=== PATIENT | male | born 1990 | race African-American/Black ===

== ENCOUNTER 2017-11-06 22:16 | Emergency (ER) | payer SELFPAY ==
[2017-11-07] MEDS ORDERED: IBUPROFEN 600 MG TABLET PO ONE (01:22)
[2017-11-07] MEDS ORDERED: ACETAMINOPHEN 325 MG TABLET PO ONE (01:22)
[2017-11-07] MEDS ORDERED: SULFAMETHOXAZOLE/TRIMETHOPRIM 800-160 MG TABLET PO ONE (01:22)
--- NOTE | 2017-11-07 01:30 | ER Document Report ---
ED General - General Chief Complaint: Abscess Stated Complaint: PAIN IN LEFT BUTTOCKS Time Seen by Provider: 11/07/17 00:28 Notes: Patient is a 27-year-old male here for perirectal abscess who presents with 3 days of progressive worsening pain to the left inner buttock. He describes as severe, constant, stabbing pain. It is worsened by sitting on the area. He has not tried any to improve the pain. He states this feels similar to how his prior perirectal abscess started so he came to the emergency department before a got worse. He notes that he has not been able to feel an appreciable area of swelling or induration only an area of pain. He denies any associated fever or constitutional symptoms. He has not seen his primary doctor regarding today's concerns. He denies any other additional complaints or concerns. TRAVEL OUTSIDE OF THE [place] IN LAST 30 DAYS: Yes - Related Data Allergies/Adverse Reactions: Penicillins Allergy (Verified 05/03/15 20:13) Past Medical History - General Information source: Patient - Social History Smoking Status: Never Smoker Frequency of alcohol use: None Drug Abuse: None Lives with: Spouse/Significant other Family History: Reviewed & Not Pertinent - Immunizations Immunizations up to date: Yes Hx Diphtheria, Pertussis, Tetanus Vaccination: Yes Review of Systems - Review of Systems Notes: Constitutional: Negative for fever. HENT: Negative for sore throat. Eyes: Negative for visual changes. Cardiovascular: Negative for chest pain. Respiratory: Negative for shortness of breath. Gastrointestinal: Negative for abdominal pain, vomiting or diarrhea. Genitourinary: Negative for dysuria. Musculoskeletal: Negative for back pain. Skin: Positive for pain to the left buttock Neurological: Negative for headaches, weakness or numbness. 10 point ROS negative except as marked above and in HPI. Physical Exam - Vital signs Vitals: Temp Pulse Resp BP Pulse Ox 98.5 F 94 16 132/83 H 98 11/06/17 22:27 11/06/17 22:27 11/06/17 22:27 11/06/17 22:27 11/06/17 22:27 Interpretation: Normal Notes: PHYSICAL EXAMINATION: GENERAL: Well-appearing, well-nourished and in no acute distress. HEAD: Atraumatic, normocephalic. EYES: Pupils equal round and reactive to light, extraocular movements intact, sclera anicteric, conjunctiva are normal. ENT: nares patent, oropharynx clear without exudates. Moist mucous membranes. NECK: Normal range of motion, supple without lymphadenopathy LUNGS: Breath sounds clear to auscultation bilaterally and equal. No wheezes rales or rhonchi. HEART: Regular rate and rhythm without murmurs Rectal: No swelling or area of tenderness on rectal examination ABDOMEN: Soft, nontender, normoactive bowel sounds. No guarding, no rebound. No masses appreciated. EXTREMITIES: Normal range of motion, no pitting or edema. No cyanosis. NEUROLOGICAL: No focal neurological deficits. Moves all extremities spontaneously and on command. PSYCH: Normal mood, normal affect. SKIN: Warm, no appreciable area of swelling, erythema or induration to the left buttock Course - Re-evaluation Re-evalutation: 11/07/17 01:31 Patient presents with 2 days of pain to the left proximal inner buttock although has no area of localized swelling or fluctuance. No area of erythema. The area of pain seems to be quite localized to one specific region but again I am unable to palpate any appreciable swelling or fluctuance to suggest an abscess at this time. A bedside ultrasound was used to evaluate further and again there is no apparent fluid collection to the area. At this point, I do not believe there is a formed abscess, likely phlegmon or initial stages of an abscess development. Therefore no incision and drainage has been performed. Patient has been started on trimethoprim sulfamethoxazole 2 tabs twice daily and has been instructed to follow-up in the surgery clinic on Thursday for reassessment or return to emergency department immediately should he begin to have more swelling or pain to the area that would suggest a developing abscess. A rectal examination likewise did not demonstrate any evidence of a rectal abscess. At this time will discharge with return precautions and follow-up recommendations. Verbal discharge instructions given a the bedside and opportunity for questions given. Medication warnings reviewed. Patient is in agreement with this plan and has verbalized understanding of return precautions and the need for primary care follow-up in the next 24-72 hours. - Vital Signs Vital signs: Temp Pulse Resp BP Pulse Ox 98.1 F 78 18 128/68 H 98 11/07/17 02:20 11/07/17 02:20 11/07/17 02:20 11/07/17 02:20 11/07/17 02:20 Discharge - Discharge Clinical Impression: Left buttock pain, Phlegmon Condition: Good Disposition: HOME, SELF-CARE Additional Instructions: We are currently unable to identify a fluid pocket although based on your prior history I am very worried that she may end up developing an abscess on this area. Unfortunately tonight by exam and ultrasound we cannot locate any fluid pocket, likely because the area has not yet fully developed. Please take the antibiotics that have been prescribed as directed. Apply warm compresses to the area for 20 minutes every 2-3 hours. Continue take For your pain: Take ibuprofen 600 mg and acetaminophen 1000 mg every 6 hours together as needed for pain. Return if your having worsening pain, spreading redness from the area, if you notice an area of fluctuance (swelling) or you have any other symptoms that are worrisome to you. Prescriptions: Sulfamethoxazole/Trimethoprim [Bactrim Ds Tablet] 2 tab PO BID #28 tablet Referrals: CHARLENE MCLEAN MD [ACTIVE STAFF] - Follow up in 3-5 days
[2017-11-07 02:48] VITALS: BP 128/68
== END 2017-11-07 02:20 | disposition home or self-care (01) ==
LOC: ER 22:16
DX: L02.31 Cutaneous abscess of buttock (principal); R52 Pain, unspecified
CPT/HCPCS: 99282

== ENCOUNTER 2017-11-11 00:12 | Inpatient (IN) | payer SELFPAY ==
--- NOTE | 2017-11-11 00:58 | ER Document Report ---
ED Skin Rash/Insect Bite/Abscs - General Chief Complaint: Abscess Stated Complaint: ABSCESS Time Seen by Provider: 11/11/17 00:26 Mode of Arrival: Ambulatory Information source: Patient TRAVEL OUTSIDE OF THE [place] IN LAST 30 DAYS: No - HPI Patient complains to provider of: Tender/swollen area Notes: Patient is here with complaints of left-sided rectal pain. The patient was seen here 4 days ago for left-sided rectal pain. He had an ultrasound at the bedside showing no obvious drainable fluid collection. He is discharged home on Bactrim for possible early perirectal abscess. Patient has had perirectal abscess in the past and reports that he has had to have this drained in the OR. He denies any fevers. He denies any nausea, vomiting, diarrhea. Pain is worse with sitting and touching the area as well as walking. He is concerned because he feels like the area is becoming more swollen and more painful. He denies any dysuria or hematuria. No chest pain or shortness of breath. He has no other complaints at this time. - Related Data Allergies/Adverse Reactions: Penicillins Allergy (Verified 05/03/15 20:13) Past Medical History - Social History Smoking Status: Unknown if Ever Smoked Family History: Reviewed & Not Pertinent Patient has suicidal ideation: No Patient has homicidal ideation: No Renal/ Medical History: Denies: Hx Peritoneal Dialysis - Immunizations Immunizations up to date: Yes Hx Diphtheria, Pertussis, Tetanus Vaccination: Yes Review of Systems - Review of Systems -: Yes All other systems reviewed and negative Physical Exam - Vital signs Vitals: Temp Pulse Resp BP Pulse Ox 97.9 F 71 16 124/69 97 11/11/17 00:17 11/11/17 00:17 11/11/17 00:17 11/11/17 00:17 11/11/17 00:17 - Notes Notes: GENERAL: alert, cooperative, nontoxic, no distress. HEAD: normocephalic, atraumatic EYES: conjunctiva pink without discharge, no external redness or swelling. EARS: no external swelling, no external redness NOSE: atraumatic, no external swelling MOUTH/THROAT: mucous membranes moist and pink, posterior pharynx without erythema, swelling, exudate. No trismus or drooling. NECK: soft, supple, full range of motion, no meningismus. CHEST: no distress, lungs clear and equal throughout. No wheezing, rales, rhonchi. CARDIAC: regular rate and rhythm, no murmur, normal capillary refill, normal pulses. No peripheral edema noted. ABDOMEN: Soft, nontender. BACK: full range of motion, no CVA tenderness. EXTREMITIES: full range of motion of all extremities. No redness, no swelling. NEURO: alert and oriented x 3, no focal deficits, full range of motion of all extremities. PYSCH: appropriate mood, affect. Patient is cooperative. SKIN: pink, warm, dry, no rash. RECTAL: Patient has no obvious abscess on visual exam. He has some tenderness just to the left of the rectum. Deep rectal exam shows minimal tenderness. No obvious fluctuance. No drainage. Course - Re-evaluation Re-evalutation: 11/11/17 02:07 Patient is nontoxic appearing with stable vitals. The patient has a prior history of perirectal abscess which is required surgical I&D. He was here 4-5 days ago with some left-sided rectal pain. At that time he had no drainable abscess on bedside ultrasound was placed on Bactrim and instructed to do warm compresses. He arrives today with some worsening pain. On exam he has tenderness just to the left of the rectum but skin exam is unremarkable for drainable abscess. On rectal exam he has some deeper left-sided rectal tenderness. CT of the pelvis with IV contrast shows a 3.3 cm left sided perirectal abscess. I discussed this with Dr. Snell of surgery, he will come to the emergency department to evaluate the patient. 11/11/17 02:32 Patient was seen and evaluated by surgery. He will be admitted. Surgeon recommended Sekou Huddleston. The patient will be admitted for surgical I&D tomorrow. - Vital Signs Vital signs: Temp Pulse Resp BP Pulse Ox 97.9 F 71 16 124/69 97 11/11/17 00:17 11/11/17 00:17 11/11/17 00:17 11/11/17 00:17 11/11/17 00:17 - Laboratory Result Diagrams: 11/11/17 01:00 11/11/17 01:00 Laboratory results interpreted by me: 11/11/17 11/11/17 01:00 01:00 WBC 13.7 H RDW 14.7 H Absolute Neutrophils 8.6 H Chloride 108 H Total Bilirubin 0.1 L - Diagnostic Test Radiology reviewed: Image reviewed, Reports reviewed - CT of the pelvis with IV contrast was a 3.3 cm left perirectal abscess. Discharge - Discharge Clinical Impression: Perirectal abscess Condition: Stable Disposition: ADMITTED OBSERVATION Admitting Provider: [facility] Unit Admitted: Surgical Floor
[2017-11-11 01:13] LABS: ABSOLUTE BASOPHILS # (AUTO) 0.1 10^3/uL (0.0-0.2); ABSOLUTE EOSINOPHILS # (AUTO) 0.1 10^3/uL (0.0-0.6); ABSOLUTE LYMPHOCYTES (AUTO) 3.6 10^3/uL (0.5-4.7); ABSOLUTE MONOCYTES (AUTO) 1.3 10^3/uL (0.1-1.4); ABSOLUTE NEUT (AUTO) 8.6 10^3/uL (1.7-8.2); BASOPHILS % (AUTO) 0.6 % (0-2); EOSINOPHILS % (AUTO) 0.7 % (0-6); HEMATOCRIT 40.4 % (37.9-51.0); HEMOGLOBIN 13.5 g/dL (13.5-17.0); LYMPHOCYTES % (AUTO) 26.7 % (13-45); MEAN CORPUSCULAR HEMOGLOBIN 28.8 pg (27.0-33.4); MEAN CORPUSCULAR HGB CONC 33.3 g/dL (32.0-36.0); MEAN CORPUSCULAR VOLUME 87 fl (80-97); MONOCYTES % (AUTO) 9.5 % (3-13); PLATELET COUNT 161 10^3/uL (150-450); RED BLOOD COUNT 4.68 10^6/uL (4.35-5.55); RED CELL DISTRIBUTION WIDTH 14.7 % (11.5-14.0); SEGMENTED NEUTROPHILS % (AUTO) 62.5 % (42-78); TOTAL CELLS COUNTED % (AUTO) 100 %; WHITE BLOOD COUNT 13.7 10^3/uL (4.0-10.5)
[2017-11-11 01:25] LABS: ALANINE AMINOTRANSFERASE 38 U/L (21-72); ALBUMIN 4.2 g/dL (3.5-5.0); ALKALINE PHOSPHATASE 78 U/L (38-126); ANION GAP 14 (5-19); ASPARTATE AMINO TRANSFERASE 29 U/L (17-59); BILIRUBIN,DIRECT 0.1 mg/dL (0.0-0.4); BILIRUBIN,TOTAL 0.1 mg/dL (0.2-1.3); BLOOD UREA NITROGEN 20 mg/dL (7-20); CALCIUM 9.7 mg/dL (8.4-10.2); CARBON DIOXIDE 22 mmol/L (22-30); CHLORIDE 108 mmol/L (98-107); GLUCOSE 109 mg/dL (75-110); POTASSIUM 3.9 mmol/L (3.6-5.0); SODIUM 143.6 mmol/L (137-145); TOTAL PROTEIN 7.6 g/dL (6.3-8.2)
--- NOTE | 2017-11-11 02:02 | RADIOLOGY REPORT (SQ) ---
EXAM DESCRIPTION: CT PELVIS WITH CONTRAST CLINICAL HISTORY: POSSIBLE LEFT RECTAL ABSCESS COMPARISON: None Available. TECHNIQUE: CT of the pelvis with contrast obtained following the uncomplicated intravenous administration of 100.1 mL Isovue-370. DLP: 1210.61 mGy-cm FINDINGS: Bones: No destructive bone lesions identified. Pelvis: Bladder: Urinary bladder is unremarkable. Bowel: No dilated loops of the visualized large or small bowel. Appendix: Normal appendix. Pelvis: In the left perirectal soft tissues there is a 3.3 x 1.6 cm fluid collection. Adjacent inflammatory change. Prostate is not enlarged. No abnormalities of the visualized iliac or femoral vessels. IMPRESSION: 1. There is a 3.3 cm likely abscess in the left perirectal soft tissues. This exam was performed according to our departmental dose-optimization program, which includes automated exposure control, adjustment of the mA and/or kV according to patient size and/or use of iterative reconstruction technique.
[2017-11-11] MEDS ORDERED: CIPROFLOXACIN 400 MG/D5W RTU 400 MG/200 ML RTUPB IV ONE ×2 (02:18→05:21)
[2017-11-11] MEDS ORDERED: METRONIDAZOLE 500 MG/NS RTU 100 ML IV ONE (02:18)
--- NOTE | 2017-11-11 02:46 | PDOC H&P ---
History of Present Illness Admission Date/PCP: 11/11/17 Patient complains of: left perirectal abscess History of Present Illness: ESAU RAMIREZ JR is a 27 year old male with several days of left perianal pain. A CT scan was done and it demonstrated a recurrent left perirectal abscess, previously drained in 2014. He has an elevated WBC. Past Surgical History Past Surgical History: Reports: Other - Interventional Radiology drainage of left perirectal abscess Social History Smoking Status: Unknown if Ever Smoked Frequency of Alcohol Use: Rare Hx Prescription Drug Abuse: No Family History Family History: Reviewed & Not Pertinent Parental Family History Reviewed: No Children Family History Reviewed: No Sibling(s) Family History Reviewed.: No Medication/Allergy Home Medications: Metronidazole [Flagyl 500 mg Tablet] 500 mg PO TID #21 tablet 05/05/15 Oxycodone HCl/Acetaminophen [Percocet 5-325 mg Tablet] 1 - 2 tab PO ASDIR PRN # 15 tablet 05/05/15 Sulfamethoxazole/Trimethoprim [Bactrim Ds Tablet] 2 tab PO BID #28 tablet Allergies/Adverse Reactions: Penicillins Allergy (Verified 05/03/15 20:13) Physical Exam Vital Signs: Temp Pulse Resp BP Pulse Ox 97.9 F 71 16 124/69 97 11/11/17 00:17 11/11/17 00:17 11/11/17 00:17 11/11/17 00:17 11/11/17 00:17 Intake & Output 11/09/17 11/10/17 11/11/17 06:59 06:59 06:59 Weight 104.7 kg General appearance: PRESENT: no acute distress Head exam: PRESENT: atraumatic Neck exam: PRESENT: full ROM Respiratory exam: PRESENT: clear to auscultation leidy Cardiovascular exam: PRESENT: RRR GI/Abdominal exam: PRESENT: soft Rectal exam: PRESENT: tenderness - left perianal at 9:00 o'clock Extremities exam: PRESENT: full ROM Results Laboratory Results: 11/11/17 01:00 11/11/17 01:00 11/11/17 11/11/17 01:00 01:00 WBC 13.7 H RBC 4.68 Hgb 13.5 Hct 40.4 MCV 87 MCH 28.8 MCHC 33.3 RDW 14.7 H Plt Count 161 Seg Neutrophils % 62.5 Lymphocytes % 26.7 Monocytes % 9.5 Eosinophils % 0.7 Basophils % 0.6 Absolute Neutrophils 8.6 H Absolute Lymphocytes 3.6 Absolute Monocytes 1.3 Absolute Eosinophils 0.1 Absolute Basophils 0.1 Sodium 143.6 Potassium 3.9 Chloride 108 H Carbon Dioxide 22 Anion Gap 14 BUN 20 Creatinine 1.04 Est GFR ( Amer) > 60 Est GFR (Non-Af Amer) > 60 Glucose 109 Calcium 9.7 Total Bilirubin 0.1 L AST 29 ALT 38 Alkaline Phosphatase 78 Total Protein 7.6 Albumin 4.2 Impressions: Pelvis CT 11/11/17 00:53 IMPRESSION: 1. There is a 3.3 cm likely abscess in the left perirectal soft tissues. This exam was performed according to our departmental dose-optimization program, which includes automated exposure control, adjustment of the mA and/or kV according to patient size and/or use of iterative reconstruction technique. Assessment & Plan - Diagnosis (1) Perirectal abscess Is this a current diagnosis for this admission?: Yes - Plan Summary Plan Summary: A/ recurrent left perirectal abscess (2014 first time oswaldo in IR) Leukocytosis P/ Admit NPO IVF Levaquin/Flagyl IV antibiotics Plan Incision and drainage of left perirectal abscess, rigid proctosigmoidoscopy in AM
[2017-11-11] MEDS ORDERED: BUPIVACAINE HCL 0.5%-EPI 1:200000 INJ/PF 30 ML VIAL ONE (07:37)
[2017-11-11] MEDS ORDERED: FENTANYL CITRATE INJ/PF 100 MCG/2 ML AMPUL ONE (09:52)
[2017-11-11] MEDS ORDERED: ONDANSETRON HCL INJ/PF 4 MG/2 ML SDV ONE (09:53)
[2017-11-11] MEDS ORDERED: MIDAZOLAM 2 MG/2 ML INJ ONE (09:53)
[2017-11-11] MEDS ORDERED: EPHEDRINE SULFATE INJ 50 MG/1 ML AMPULE ONE (09:53)
[2017-11-11] MEDS ORDERED: PROPOFOL INJ 200 MG/20 ML VIAL IV ONE (09:53)
[2017-11-11] MEDS ORDERED: DIPHENHYDRAMINE HCL 50 MG/ML VIAL IV PRN (10:22)
[2017-11-11] MEDS ORDERED: FENTANYL CITRATE INJ/PF 100 MCG/2 ML AMPUL IV PRN ×3 (10:22)
[2017-11-11] MEDS ORDERED: PROMETHAZINE HCL INJ 25 MG/1 ML VIAL IV PRN (10:22)
[2017-11-11] MEDS ORDERED: MEPERIDINE HCL/PF INJ 25 MG/1 ML DISP.SYRIN IV PRN (10:22)
[2017-11-11] MEDS ORDERED: THROMBIN (BOVINE) TOPICAL 20000 UNIT VIAL ONE (10:47)
[2017-11-11] MEDS: FENTANYL CITRATE INJ/PF 100 MCG/2 ML AMPUL ONE ×2 (11:12→11:17)
--- NOTE | 2017-11-11 11:32 | Operative Report ---
Operative Report DATE OF SURGERY: 11/11/17 PREOPERATIVE DIAGNOSIS: recurent left perirectal abscess POSTOPERATIVE DIAGNOSIS: same OPERATION: rigid proctosigmoidoscopy. ultrasound perirectal. I&D perirectal abscess. rectal fistulotomy SURGEON: YULI CRAFT 1ST DIRECTOR MARKETING: HAZEL CAPELLAN ANESTHESIA: GA - plus local 05% marcaine with epinephrine 30 mL TISSUE REMOVED OR ALTERED: pus aspirated and sent for cx and gram stain COMPLICATIONS: none ESTIMATED BLOOD LOSS: < 20 mL INTRAOPERATIVE FINDINGS: left dentate line opening of perirectal abscess. large left perirectal abscess cavity PROCEDURE: see dictation
[2017-11-11] MEDS ORDERED: NORMAL SALINE 1000 ML 1,000 ML IV PRN (11:54)
[2017-11-11] MEDS ORDERED: ONDANSETRON HCL INJ/PF 4 MG/2 ML SDV IV PRN ×2 (11:55→13:30)
[2017-11-11] MEDS: HYDROMORPHONE HCL INJ/PF 2 MG/ML AMPULE IV PRN ×4 (12:52→20:14)
--- NOTE | 2017-11-11 13:19 | OPERATIVE REPORT E ---
Operative Report NAME: ESAU RAMIREZ : 1990 AGE: 27Y DATE OF SURGERY: 11/11/2017 ROOM: 205 PREOPERATIVE DIAGNOSIS: LEFT PERIRECTAL ABSCESS. POSTOPERATIVE DIAGNOSIS: LEFT PERIRECTAL ABSCESS. OPERATION: 1. Ultrasound of the perineum. 2. Incision and drainage of perirectal abscess. 3. Rigid proctosigmoidoscopy. 4. Left rectal fistulotomy. SURGEON: YULI CRAFT M.D. ARTISTIC DIRECTOR: KJ Mack COMPLICATIONS: None. ANESTHESIA: General plus 30 mL of 0.5% lidocaine with epinephrine. FLUIDS: 1300 mL. URINE OUTPUT: not monitored DRAINS: None. ESTIMATED BLOOD LOSS: Less than 10 mL. INDICATION AND FINDINGS: This is a 27-year-old male who presented to the Emergency Room with pain in the left perineum/perirectum which appeared to be a recurrent left perirectal abscess. This was drained in 2014 percutaneously. \ The patient comes back to the emergency room with the above complaint. A CAT scan of the pelvis was done revealing a large perirectal abscess located deep on the left side of the rectum without extension to the skin. A decision was made to take the patient to surgery to undergo definitive treatment of the perirectal abscess to prevent reoccurrence. PROCEDURE: The patient was brought to the operating room. The patient was placed in the supine position. General anesthesia induced by intubation, and the patient was then placed in a lithotomy position. The perineum and perianum were prepped and draped in the usual fashion. A rigid proctosigmoidoscope was then inserted up to 20 cm and slowly withdrawn. On the left of the rectum at the level of the dentate line, an area of pinpoint redness was identified. This was considered to be the point of origin of the left perirectal abscess. Following this, a left perirectal ultrasound was performed by applying an ultrasound probe to the left of the perineum and pointing this toward the left perirectal area. A large abscessed cavity was noted. This was punctured with a needle on a syringe and pus was obtained. This was aspirated and sent for culture aerobic and anaerobic. After this was accomplished, the needle was removed and a surgical marker was use to zana the insertion point. The bivalve rectal dilator was then inserted and a skin incision was made at the insertion point of the needle which was just about 2 cm away from the anoderm. Through the incision, a pointed and long hemostat was inserted and directed toward to the point of origin of the abscess located in the dentate line. The tip of the instrument then pierced the mucosa with the assistance of Bovie, and the rectum with internal sphincter and anoderm were then divided over the hemostat to obtain a fistulotomy. The area was irrigated with normal saline. All the bleeders were cauterized. The area was then infiltrated with about 30 mL of 0.5% marcaine with epinephrine. After local hemostasis was obtained with the Bovie, the rectum was packed with Surgicel, Gelfoam, soaked in thrombin solution. External dressings were then applied with surgical underwear placed. The patient tolerated the procedure well. The Childers catheter was inserted and the patient was then extubated and transferred to the recovery room in satisfactory condition. DICTATING PHYSICIAN: YULI CRAFT M.D. [id number] PHY#: [id number] ID: [id number] JOB#: [id number] ACCT: [id number] cc:YULI CRAFT M.D. > MTDD
[2017-11-11] MEDS: METRONIDAZOLE 500 MG/NS RTU 100 ML IV SCH ×2 (14:32→22:34)
[2017-11-11] MEDS: CIPROFLOXACIN 400 MG/D5W RTU 400 MG/200 ML RTUPB IV SCH (17:51)
[2017-11-11] MEDS: FAMOTIDINE INJ/PF 20 MG/2 ML SDV IV SCH (22:33)
[2017-11-12] MEDS: HYDROMORPHONE HCL INJ/PF 2 MG/ML AMPULE IV PRN (03:41)
[2017-11-12] MEDS: CIPROFLOXACIN 400 MG/D5W RTU 400 MG/200 ML RTUPB IV SCH (05:06)
[2017-11-12] MEDS: METRONIDAZOLE 500 MG/NS RTU 100 ML IV SCH (05:07)
[2017-11-12 06:59] LABS: HEMOGLOBIN 13.4 g/dL (13.5-17.0); MEAN CORPUSCULAR HEMOGLOBIN 28.3 pg (27.0-33.4); MEAN CORPUSCULAR HGB CONC 32.6 g/dL (32.0-36.0); MEAN CORPUSCULAR VOLUME 87 fl (80-97); PLATELET COUNT 145 10^3/uL (150-450); RED BLOOD COUNT 4.73 10^6/uL (4.35-5.55); WHITE BLOOD COUNT 15.1 10^3/uL (4.0-10.5)
[2017-11-12 07:12] LABS: ANION GAP 11 (5-19); BLOOD UREA NITROGEN 8 mg/dL (7-20); CALCIUM 9.3 mg/dL (8.4-10.2); CARBON DIOXIDE 24 mmol/L (22-30); CHLORIDE 103 mmol/L (98-107); GLUCOSE 89 mg/dL (75-110); POTASSIUM 4.4 mmol/L (3.6-5.0); SODIUM 138.2 mmol/L (137-145)
[2017-11-12] MEDS: FAMOTIDINE INJ/PF 20 MG/2 ML SDV IV SCH (10:05)
--- NOTE | 2017-11-12 10:17 | PDOC PROGRESS REPORT ---
Subjective Progress Note for:: 11/12/17 Subjective:: Still having left perirectal pain but markedly improved since surgery Reason For Visit: JING RECTAL ABSCESS/S/P I&D PERANIAL ABSCESS Physical Exam Vital Signs: Temp Pulse Resp BP Pulse Ox 98.1 F 81 16 129/72 H 98 11/12/17 07:57 11/12/17 07:57 11/12/17 07:57 11/12/17 07:57 11/12/17 07:57 Intake & Output 11/11/17 11/12/17 11/13/17 06:59 06:59 06:59 Intake Total 2800 Output Total 2320 Balance 480 General appearance: PRESENT: no acute distress, cooperative Respiratory exam: PRESENT: clear to auscultation leidy Cardiovascular exam: PRESENT: RRR GI/Abdominal exam: PRESENT: other - Soft, nondistended, nontender to palpation. Rectal exam: PRESENT: other - Left perianal open wound with scant amount of drainage tenderness in this area but no fluctuance. Results Laboratory Results: 11/12/17 06:22 11/12/17 06:22 11/12/17 11/12/17 06:22 06:22 WBC 15.1 H RBC 4.73 Hgb 13.4 L Hct 41.0 MCV 87 MCH 28.3 MCHC 32.6 RDW 15.0 H Plt Count 145 L Sodium 138.2 Potassium 4.4 Chloride 103 Carbon Dioxide 24 Anion Gap 11 BUN 8 Creatinine 0.98 Est GFR ( Amer) > 60 Est GFR (Non-Af Amer) > 60 Glucose 89 Calcium 9.3 Impressions: Pelvis CT 11/11/17 00:53 IMPRESSION: 1. There is a 3.3 cm likely abscess in the left perirectal soft tissues. This exam was performed according to our departmental dose-optimization program, which includes automated exposure control, adjustment of the mA and/or kV according to patient size and/or use of iterative reconstruction technique. Assessment & Plan - Diagnosis (1) Perirectal abscess Is this a current diagnosis for this admission?: Yes Plan: Status post surgical drainage. Patient doing well. Will DC Childers. If able to urinate, will discharge patient home on p.o. antibiotics.
--- NOTE | 2017-11-12 10:49 | DISCHARGE SUMMARY E ---
Discharge Summary NAME: ESAU RAMIREZ : 1990 AGE: 27Y ADMITTED: 11/11/2017 DISCHARGED: 11/12/2017 DISCHARGE DIAGNOSIS: Left perirectal abscess. PROCEDURE PERFORMED DURING HOSPITALIZATION: Ultrasound of the perineum with incision and drainage of perirectal abscess, rigid proctosigmoidoscopy, left rectal fistulotomy performed by Dr. Snell on November 11, 2017. HOSPITAL COURSE: The patient underwent the above mentioned surgery. He did well postoperatively. He had marked improvement of his preoperative pain. The surgical site looked good with adequate drainage with good pain control. Patient is now being discharged to home in good condition. He will follow up at [facility] next week. He is encouraged to stay active at home. He is to do sitz baths or a shower daily and after each bowel movements. DISCHARGE MEDICATIONS: 1. Levaquin 500 mg 1 p.o. daily for 7 days. 2. Flagyl 500 mg 1 p.o. t.i.d. for 7 days. 3. Percocet 1 p.o. q.4 hours p.r.n. pain. 4. Colace 1 p.o. b.i.d. for 30 days. He is to call for any problems or concerns. DICTATING PHYSICIAN: FRANCINE STEPHEN M.D. [id number] PHY#: [id number] ID: [id number] JOB#: [id number] ACCT: [id number] cc:[facility], FRANCINE TAM M.D, M.D. [facility] >
[2017-11-12 10:52] VITALS: BP 116/68
== END 2017-11-12 11:16 | disposition home or self-care (01) | DRG 395 ==
LOC: ER 00:12 → EH 02:42 → 2N 03:36
PROVIDERS: ADMIT Surgery; ATTEND Surgery
PROC: 0D9P3ZX Drainage of Rectum, Percutaneous Approach, Diagnostic (ICD-10-PCS; 2017-11-11)
PROC: 0DJD8ZZ Inspection of Lower Intestinal Tract, Via Natural or Artificial Opening Endoscopic (ICD-10-PCS; 2017-11-11)
PROC: 0D9P3ZZ Drainage of Rectum, Percutaneous Approach (ICD-10-PCS; principal; 2017-11-11 10:15)
PROC: BD4CZZZ Ultrasonography of Rectum (ICD-10-PCS; 2017-11-11 10:15)
DX: K61.1 Rectal abscess (principal)
CPT/HCPCS: 36415; 72193; 80048; 80053; 85025; 85027; 87070; 87075; 87077; 87186; 87205; 902; 96374; 99284; J0744; J1170; J2250; J2405; J2704; J3010; J3490; J7030; S0028